=== PATIENT | male | born 1970 | race Caucasian/White ===

== ENCOUNTER → 2023-08-29 | Outpatient (CLI) | payer OTHER, SELFPAY ==
[2023-08-29 17:06] LABS: PSA,Total - Annual Screen 0.16 ng/mL (0.00-4.00)
== END | disposition home or self-care (01) ==
LOC: LAB 16:02
PROVIDERS: PCP Family Medicine; Referring Provider Urology; Visit Provider Urology
DX: Z12.5 Encounter for screening for malignant neoplasm of prostate (principal)
CPT/HCPCS: 36415; 84153; G0103